=== PATIENT | male | born 1950 | race African-American/Black ===

== ENCOUNTER 2018-03-18 16:10 | Inpatient (IN) ==
[2018-03-18 16:51] LABS: Basophils % 0.3 % (0.0-0.8); Eosinophils % 0.2 % (0.00-10.9); Hematocrit 33.4 VOL% (42.0-52.0); Hemoglobin 11.3 GM/DL (14.0-18.0); Immature Granulocytes % 0.5 %; Immature Granulocytes Absolute 0.07 #; Lymphocytes # 0.7 10*3/uL (1.4-4.0); Lymphocytes % 4.7 % (21.2-54.2); Mean Corpuscular HGB Conc 33.8 GM/DL (32-36); Mean Corpuscular Hemoglobin 29 PG (27-34); Mean Corpuscular Volume 84.6 FL (87-102); Mean Platelet Volume 12.3 FL (9.6-12.0); Monocytes # 0.9 10*3/uL (0.11-0.8); Monocytes % 6.1 % (1.7-12.7); Neutrophils % 88.2 % (38.7-73.9); Platelet Count 220 T/CUMM (130-400); Red Blood Count 3.95 MC/CUMM (3.8-5.5); Red Cell Distribution Width 14.6 % (9.3-17.3); White Blood Count 14.7 T/CUMM (4-12)
[2018-03-18 17:00] LABS: Apearance,Urine CLEAR (Clear); Bilirubin,Urine Negative (Negative); Blood, Urine Negative (Negative); Glucose,Urine (UA) 50 mg/dL (Negative); Ketones,Urine Negative (Negative); Nitrite,Urine Negative (Negative); Protein,Urine Negative; Urine Color Yellow (Yellow); Urine Specific Gravity 1.009 (1.001-1.035); Urine Urobilinogen < 2.0 EU/DL (0.2-1.0)
[2018-03-18 17:12] LABS: Albumin 3.8 G/DL (3.4-5.0); Bilirubin,Total 0.4 MG/DL (0.2-1.0); Calcium 8.4 MG/DL (8.5-10.1); Lactic Acid 1.2 MMOL/L (0.4-2.0); Osmolality,Calculated 300.1 MOS/KG (273-304); Total Protein 7.5 G/DL (6.4-8.3)
[2018-03-18 17:20] LABS: Band Neutrophils 6 % (0-10); Lymphocytes 1 % (20-55); Segmented Neutrophils 88 % (50-85); Total Cells Counted 100
[2018-03-18 17:21] LABS: Anisocytosis 1+; Ovalocytes Few; Platelet Estimate Normal
[2018-03-18] MEDS ORDERED: SODIUM CHLORIDE 0.9% 1,000 ML IV STA (17:21)
[2018-03-18] MEDS ORDERED: DEXTROSE 50% 25 GM/50 ML VIAL IV PRN (19:22)
[2018-03-18] MEDS ORDERED: GLUCAGON 1 MG VIAL IM PRN (19:22)
[2018-03-18] MEDS ORDERED: ALBUTEROL 2.5 MG/3 ML NEB RESP TX PRN (19:24)
[2018-03-18] MEDS ORDERED: SODIUM CHLORIDE 0.9% 1,000 ML IV SCH (19:30)
[2018-03-18] MEDS ORDERED: LEVOFLOXACIN INJ 150 ML IV ONE (20:51)
[2018-03-18] MEDS ORDERED: INSULIN NPH/REGULAR 70/30 100 UNIT/ML SUBCUT SCH (21:00)
[2018-03-18] MEDS ORDERED: LEVOFLOXACIN INJ 750 MG in PREMIX 1 EACH IV SCH (22:00)
[2018-03-18] MEDS: INSULIN LISPRO 100 UNIT/ML SUBCUT SCH (22:42)
[2018-03-18] MEDS: hydrALAZINE 25 MG TABLET PO SCH (22:43)
[2018-03-18] MEDS: CARVEDILOL 25 MG TABLET PO SCH (22:43)
[2018-03-18] MEDS: PANTOPRAZOLE 40 MG TABLET PO SCH (22:43)
[2018-03-18] MEDS: ENOXAPARIN 30 MG/0.3 ML SYRINGE SUBCUT SCH (22:43)
[2018-03-18] MEDS: SODIUM CHLORIDE 0.45% 1,000 ML IV SCH (22:44)
[2018-03-19] MEDS: PIPERACILLIN/TAZOBACTAM 3,375 MG in SODIUM CHLORIDE 0.9% 100 ML IV SCH ×4 (00:20→23:40)
[2018-03-19] MEDS: ALBUTEROL 2.5 MG/3 ML NEB RESP TX SCH ×4 (00:27→19:10)
[2018-03-19 06:45] LABS: Basophils % 0.1 % (0.0-0.8); Eosinophils % 0.1 % (0.00-10.9); Hematocrit 31.3 VOL% (42.0-52.0); Hemoglobin 9.9 GM/DL (14.0-18.0); Immature Granulocytes % 0.5 %; Immature Granulocytes Absolute 0.07 #; Lymphocytes # 1.9 10*3/uL (1.4-4.0); Lymphocytes % 12.4 % (21.2-54.2); Mean Corpuscular HGB Conc 31.6 GM/DL (32-36); Mean Corpuscular Hemoglobin 28 PG (27-34); Mean Corpuscular Volume 88.4 FL (87-102); Mean Platelet Volume 12.9 FL (9.6-12.0); Monocytes # 1.4 10*3/uL (0.11-0.8); Neutrophils # 12.1 10*3/uL (1.4-7.4); Neutrophils % 77.9 % (38.7-73.9); Platelet Count 184 T/CUMM (130-400); Red Blood Count 3.54 MC/CUMM (3.8-5.5); Red Cell Distribution Width 14.8 % (9.3-17.3); White Blood Count 15.5 T/CUMM (4-12)
[2018-03-19 07:31] LABS: Calcium 7.8 MG/DL (8.5-10.1); Osmolality,Calculated 309.3 MOS/KG (273-304); Potassium 4.5 MMOL/L (3.5-5.1); Risk Ratio 2.42; Thyroid Stimulating Hormone 0.837 uIU/ml (0.358-3.74); Total Protein 6.6 G/DL (6.4-8.3); VLDL CHOLESTEROL 25.2 MG/DL
[2018-03-19] MEDS ORDERED: INSULIN NPH/REGULAR 70/30 100 UNIT/ML SUBCUT SCH ×2 (08:00→09:00)
[2018-03-19] MEDS ORDERED: FUROSEMIDE 40 MG TABLET PO SCH (08:00)
[2018-03-19] MEDS ORDERED: BUMETANIDE 1 MG TABLET PO SCH (09:00)
[2018-03-19] MEDS ORDERED: sitaGLIPtin 100 MG TABLET PO SCH (09:00)
[2018-03-19] MEDS: INSULIN LISPRO 100 UNIT/ML SUBCUT SCH ×4 (09:04→21:23)
[2018-03-19] MEDS: ATORVASTATIN 20 MG TABLET PO SCH (09:19)
[2018-03-19] MEDS: hydrALAZINE 25 MG TABLET PO SCH ×4 (09:19→21:23)
[2018-03-19] MEDS: CARVEDILOL 25 MG TABLET PO SCH ×2 (09:21→17:04)
[2018-03-19] MEDS: SPIRONOLACTONE 25 MG TABLET PO SCH (09:21)
[2018-03-19] MEDS: amLODIPine 10 MG TABLET PO SCH (09:21)
[2018-03-19] MEDS: ASPIRIN EC 81 MG TABLET PO SCH (09:22)
[2018-03-19] MEDS: EPLERENONE 50 MG TABLET PO SCH (09:22)
[2018-03-19] MEDS: CLOPIDOGREL 75 MG TABLET PO SCH (09:22)
[2018-03-19] MEDS: ENOXAPARIN 30 MG/0.3 ML SYRINGE SUBCUT SCH (21:23)
[2018-03-19] MEDS: PANTOPRAZOLE 40 MG TABLET PO SCH (21:23)
[2018-03-19] MEDS: SODIUM CHLORIDE 0.45% 1,000 ML IV SCH (21:25)
[2018-03-19] MEDS ORDERED: ALUMINUM/MAGNES/SIMETH MAX STR 30 ML UDCUP PO PRN (21:55)
[2018-03-20] MEDS: ALBUTEROL 2.5 MG/3 ML NEB RESP TX SCH ×4 (00:30→20:17)
[2018-03-20] MEDS: ONDANSETRON 4 MG/2 ML VIAL IV PRN (03:40)
[2018-03-20 07:06] LABS: Calcium 8.4 MG/DL (8.5-10.1); Osmolality,Calculated 301.8 MOS/KG (273-304)
[2018-03-20] MEDS: PIPERACILLIN/TAZOBACTAM 3,375 MG in SODIUM CHLORIDE 0.9% 100 ML IV SCH ×3 (08:07→23:56)
[2018-03-20] MEDS: SODIUM CHLORIDE 0.45% 1,000 ML IV SCH (08:07)
[2018-03-20] MEDS: CLOPIDOGREL 75 MG TABLET PO SCH (08:16)
[2018-03-20] MEDS: SPIRONOLACTONE 25 MG TABLET PO SCH (08:16)
[2018-03-20] MEDS: hydrALAZINE 25 MG TABLET PO SCH ×4 (08:16→21:10)
[2018-03-20] MEDS: amLODIPine 10 MG TABLET PO SCH (08:16)
[2018-03-20] MEDS: ASPIRIN EC 81 MG TABLET PO SCH (08:16)
[2018-03-20] MEDS: ATORVASTATIN 20 MG TABLET PO SCH (08:16)
[2018-03-20] MEDS: INSULIN LISPRO 100 UNIT/ML SUBCUT SCH ×4 (08:17→21:06)
[2018-03-20] MEDS: INSULIN NPH/REGULAR 70/30 100 UNIT/ML SUBCUT SCH ×2 (08:23→21:06)
[2018-03-20] MEDS: EPLERENONE 50 MG TABLET PO SCH (09:03)
[2018-03-20] MEDS: ACETAMINOPHEN 325 MG TABLET PO PRN (10:03)
[2018-03-20] MEDS: CARVEDILOL 25 MG TABLET PO SCH ×2 (10:03→16:28)
[2018-03-20] MEDS: VANCOMYCIN INJ 1,750 MG in SODIUM CHLORIDE 0.9% 500 ML IV SCH (13:41)
[2018-03-20] MEDS: ENOXAPARIN 30 MG/0.3 ML SYRINGE SUBCUT SCH (21:10)
[2018-03-20] MEDS: PANTOPRAZOLE 40 MG TABLET PO SCH (21:10)
[2018-03-20] MEDS: LEVOFLOXACIN INJ 500 MG in PREMIX 1 EACH IV SCH (22:30)
[2018-03-20] MEDS ORDERED: MAGNESIUM HYDROXIDE SUSP 30 ML UDCUP PO PRN (22:39)
[2018-03-21] MEDS: ALBUTEROL 2.5 MG/3 ML NEB RESP TX SCH ×4 (01:50→19:38)
[2018-03-21] MEDS ORDERED: FUROSEMIDE 100 MG/10 ML VIAL ONE (02:12)
[2018-03-21] MEDS ORDERED: NITROGLYCERIN DRIP 50 MG/250 ML BOTTLE IV ONE (02:20)
[2018-03-21] MEDS ORDERED: NITROGLYCERIN DRIP 50 MG/250 ML BOTTLE IV PRN (02:21)
[2018-03-21] MEDS ORDERED: MORPHINE 4 MG/1 ML VIAL IV ONE (02:23)
[2018-03-21] MEDS ORDERED: FUROSEMIDE 40 MG/4 ML VIAL IV ONE (02:30)
[2018-03-21] MEDS ORDERED: ETOMIDATE 20 MG/10 ML VIAL IV ONE (02:46)
[2018-03-21] MEDS ORDERED: VECURONIUM 10 MG VIAL IV ONE (02:46)
[2018-03-21 02:58] LABS: Calcium 8.5 MG/DL (8.5-10.1); Calcium 8.6 MG/DL (8.5-10.1); Osmolality,Calculated 304.4 MOS/KG (273-304); Potassium 4.4 MMOL/L (3.5-5.1)
[2018-03-21] MEDS ORDERED: FUROSEMIDE 20 MG/2 ML VIAL IV ONE (03:00)
[2018-03-21 03:03] LABS: Basophils % 0.1 % (0.0-0.8); Eosinophils # 0.1 10*3/uL (0.0-0.87); Eosinophils % 1.3 % (0.00-10.9); Hematocrit 34.8 VOL% (42.0-52.0); Hemoglobin 10.9 GM/DL (14.0-18.0); Immature Granulocytes % 0.4 %; Immature Granulocytes Absolute 0.04 #; Lymphocytes # 1.2 10*3/uL (1.4-4.0); Lymphocytes % 12.9 % (21.2-54.2); Mean Corpuscular HGB Conc 31.3 GM/DL (32-36); Mean Corpuscular Hemoglobin 28 PG (27-34); Mean Corpuscular Volume 88.5 FL (87-102); Mean Platelet Volume 12.9 FL (9.6-12.0); Monocytes # 0.9 10*3/uL (0.11-0.8); Neutrophils # 7.3 10*3/uL (1.4-7.4); Neutrophils % 76.3 % (38.7-73.9); Platelet Count 186 T/CUMM (130-400); Red Blood Count 3.93 MC/CUMM (3.8-5.5); Red Cell Distribution Width 14.7 % (9.3-17.3); White Blood Count 9.5 T/CUMM (4-12)
[2018-03-21 03:25] LABS: ABG Base Excess -1.9 MMOL/L (-2.5-2.5); ABG HCO3 22.3 MMOL/L (20-26); ABG Oxygen Saturation 66.4 % (95-100); ABG PCO2 37.9 MM HG (35-48); ABG PH 7.387 (7.35-7.45); ABG TCO2 20.8 MMOL/L (23-27)
[2018-03-21 03:29] LABS: ABG PO2 37.3 MM HG (80-95)
[2018-03-21 04:21] LABS: ABG Base Excess -2.3 MMOL/L (-2.5-2.5); ABG HCO3 21.9 MMOL/L (20-26); ABG Oxygen Saturation 87.3 % (95-100); ABG PCO2 35.2 MM HG (35-48); ABG PH 7.411 (7.35-7.45); ABG PO2 59.2 MM HG (80-95); ABG TCO2 22.9 MMOL/L (23-27); Pt O2 Delivery Device BIPAP
[2018-03-21] MEDS ORDERED: FUROSEMIDE 40 MG/4 ML VIAL IV SCH (08:00)
[2018-03-21] MEDS: FUROSEMIDE 40 MG/4 ML VIAL IV SCH ×2 (08:53→16:50)
[2018-03-21] MEDS: INSULIN LISPRO 100 UNIT/ML SUBCUT SCH ×4 (08:55→20:33)
[2018-03-21] MEDS: INSULIN NPH/REGULAR 70/30 100 UNIT/ML SUBCUT SCH ×2 (08:55→20:34)
[2018-03-21] MEDS: CLOPIDOGREL 75 MG TABLET PO SCH (08:57)
[2018-03-21] MEDS: ASPIRIN EC 81 MG TABLET PO SCH (08:57)
[2018-03-21] MEDS: SPIRONOLACTONE 25 MG TABLET PO SCH (08:57)
[2018-03-21] MEDS: amLODIPine 10 MG TABLET PO SCH (08:57)
[2018-03-21] MEDS: ATORVASTATIN 20 MG TABLET PO SCH (08:57)
[2018-03-21] MEDS: CARVEDILOL 25 MG TABLET PO SCH ×2 (08:57→16:50)
[2018-03-21] MEDS: hydrALAZINE 25 MG TABLET PO SCH ×4 (08:57→20:35)
[2018-03-21] MEDS: EPLERENONE 50 MG TABLET PO SCH (09:00)
[2018-03-21] MEDS: PIPERACILLIN/TAZOBACTAM 3,375 MG in SODIUM CHLORIDE 0.9% 100 ML IV SCH ×2 (09:00→16:50)
[2018-03-21] MEDS: ENOXAPARIN 30 MG/0.3 ML SYRINGE SUBCUT SCH (20:34)
[2018-03-21] MEDS: PANTOPRAZOLE 40 MG TABLET PO SCH (20:35)
[2018-03-21 22:26] LABS: ABG HCO3 26.6 MMOL/L (20-26); ABG Oxygen Saturation 73.5 % (95-100); ABG PCO2 38.3 MM HG (35-48); ABG PH 7.455 (7.35-7.45); ABG TCO2 24.4 MMOL/L (23-27)
[2018-03-21 22:28] LABS: ABG PO2 40.2 MM HG (80-95)
[2018-03-22] MEDS: PIPERACILLIN/TAZOBACTAM 3,375 MG in SODIUM CHLORIDE 0.9% 100 ML IV SCH ×3 (00:17→17:03)
[2018-03-22] MEDS: ALBUTEROL 2.5 MG/3 ML NEB RESP TX SCH ×4 (00:52→20:04)
[2018-03-22 03:10] LABS: ABG Base Excess 2.8 MMOL/L (-2.5-2.5); ABG HCO3 26.8 MMOL/L (20-26); ABG Oxygen Saturation 92.9 % (95-100); ABG PCO2 37.5 MM HG (35-48); ABG PH 7.458 (7.35-7.45); ABG PO2 64.4 MM HG (80-95); Pt O2 Delivery Device CPAP
[2018-03-22 04:47] LABS: Calcium 8.6 MG/DL (8.5-10.1); Potassium 3.6 MMOL/L (3.5-5.1)
[2018-03-22] MEDS: INSULIN LISPRO 100 UNIT/ML SUBCUT SCH ×4 (07:50→20:28)
[2018-03-22] MEDS ORDERED: FUROSEMIDE 100 MG/10 ML VIAL ONE (08:20)
[2018-03-22] MEDS: amLODIPine 10 MG TABLET PO SCH (08:25)
[2018-03-22] MEDS: CLOPIDOGREL 75 MG TABLET PO SCH (08:25)
[2018-03-22] MEDS: CARVEDILOL 25 MG TABLET PO SCH ×2 (08:26→17:02)
[2018-03-22] MEDS: INSULIN NPH/REGULAR 70/30 100 UNIT/ML SUBCUT SCH ×2 (08:26→20:28)
[2018-03-22] MEDS: SPIRONOLACTONE 25 MG TABLET PO SCH (08:26)
[2018-03-22] MEDS: hydrALAZINE 25 MG TABLET PO SCH ×4 (08:26→20:28)
[2018-03-22] MEDS: ASPIRIN EC 81 MG TABLET PO SCH (08:26)
[2018-03-22] MEDS: ATORVASTATIN 20 MG TABLET PO SCH (08:26)
[2018-03-22] MEDS: EPLERENONE 50 MG TABLET PO SCH (08:26)
[2018-03-22] MEDS: FUROSEMIDE 40 MG/4 ML VIAL IV SCH ×2 (08:26→17:03)
[2018-03-22] MEDS: VANCOMYCIN INJ 1,750 MG in SODIUM CHLORIDE 0.9% 500 ML IV SCH (12:34)
[2018-03-22] MEDS: ACETAMINOPHEN 325 MG TABLET PO PRN (12:55)
[2018-03-22] MEDS: LEVOFLOXACIN INJ 500 MG in PREMIX 1 EACH IV SCH (20:27)
[2018-03-22] MEDS: PANTOPRAZOLE 40 MG TABLET PO SCH (20:28)
[2018-03-22] MEDS: ENOXAPARIN 30 MG/0.3 ML SYRINGE SUBCUT SCH (20:28)
[2018-03-23] MEDS: ONDANSETRON 4 MG/2 ML VIAL IV PRN ×2 (00:02→20:44)
[2018-03-23] MEDS: ALBUTEROL 2.5 MG/3 ML NEB RESP TX SCH ×4 (00:44→19:31)
[2018-03-23] MEDS: PIPERACILLIN/TAZOBACTAM 3,375 MG in SODIUM CHLORIDE 0.9% 100 ML IV SCH ×3 (00:52→16:36)
[2018-03-23 05:17] LABS: Basophils % 0.2 % (0.0-0.8); Eosinophils % 0.3 % (0.00-10.9); Hematocrit 30.1 VOL% (42.0-52.0); Hemoglobin 9.8 GM/DL (14.0-18.0); Immature Granulocytes % 0.4 %; Immature Granulocytes Absolute 0.05 #; Lymphocytes # 1.3 10*3/uL (1.4-4.0); Lymphocytes % 10.6 % (21.2-54.2); Mean Corpuscular HGB Conc 32.6 GM/DL (32-36); Mean Corpuscular Hemoglobin 28 PG (27-34); Mean Corpuscular Volume 86.2 FL (87-102); Mean Platelet Volume 12.5 FL (9.6-12.0); Monocytes # 1.4 10*3/uL (0.11-0.8); Monocytes % 11.7 % (1.7-12.7); Neutrophils # 9.2 10*3/uL (1.4-7.4); Neutrophils % 76.8 % (38.7-73.9); Platelet Count 170 T/CUMM (130-400); Red Blood Count 3.49 MC/CUMM (3.8-5.5); Red Cell Distribution Width 14.5 % (9.3-17.3)
[2018-03-23 05:55] LABS: Calcium 8.7 MG/DL (8.5-10.1); Osmolality,Calculated 294.3 MOS/KG (273-304); Potassium 3.8 MMOL/L (3.5-5.1)
[2018-03-23] MEDS ORDERED: diphenhydrAMINE 2% CREAM 28 GM TUBE TOP PRN (09:30)
[2018-03-23] MEDS: INSULIN LISPRO 100 UNIT/ML SUBCUT SCH ×4 (09:46→20:42)
[2018-03-23] MEDS ORDERED: FUROSEMIDE 100 MG/10 ML VIAL ONE (09:51)
[2018-03-23] MEDS: ASPIRIN EC 81 MG TABLET PO SCH (10:02)
[2018-03-23] MEDS: amLODIPine 10 MG TABLET PO SCH (10:02)
[2018-03-23] MEDS: INSULIN NPH/REGULAR 70/30 100 UNIT/ML SUBCUT SCH ×2 (10:02→20:44)
[2018-03-23] MEDS: ATORVASTATIN 20 MG TABLET PO SCH (10:03)
[2018-03-23] MEDS: hydrALAZINE 25 MG TABLET PO SCH ×4 (10:03→20:44)
[2018-03-23] MEDS: SPIRONOLACTONE 25 MG TABLET PO SCH (10:03)
[2018-03-23] MEDS: CLOPIDOGREL 75 MG TABLET PO SCH (10:03)
[2018-03-23] MEDS: CARVEDILOL 25 MG TABLET PO SCH ×2 (10:03→16:28)
[2018-03-23] MEDS: FUROSEMIDE 40 MG/4 ML VIAL IV SCH ×2 (10:04→16:28)
[2018-03-23] MEDS: EPLERENONE 25 MG TABLET PO SCH (10:06)
[2018-03-23] MEDS ORDERED: ALBUTEROL 0.63 MG/3 ML NEB RESP TX PRN (14:15)
[2018-03-23] MEDS ORDERED: ALBUTEROL 2.5 MG/3 ML NEB RESP TX PRN (14:30)
[2018-03-23] MEDS: ENOXAPARIN 30 MG/0.3 ML SYRINGE SUBCUT SCH (20:43)
[2018-03-23] MEDS: PANTOPRAZOLE 40 MG TABLET PO SCH (20:44)
[2018-03-24] MEDS ORDERED: VANCOMYCIN INJ 1,750 MG in SODIUM CHLORIDE 0.9% 500 ML IV SCH
[2018-03-24] MEDS: ALBUTEROL 2.5 MG/3 ML NEB RESP TX SCH ×4 (00:06→19:33)
[2018-03-24] MEDS: PIPERACILLIN/TAZOBACTAM 3,375 MG in SODIUM CHLORIDE 0.9% 100 ML IV SCH ×3 (00:14→16:03)
[2018-03-24] MEDS: ONDANSETRON 4 MG/2 ML VIAL IV PRN ×2 (00:57→13:00)
[2018-03-24 05:55] LABS: Basophils % 0.3 % (0.0-0.8); Eosinophils # 0.1 10*3/uL (0.0-0.87); Eosinophils % 1.2 % (0.00-10.9); Hematocrit 29.9 VOL% (42.0-52.0); Hemoglobin 9.8 GM/DL (14.0-18.0); Immature Granulocytes % 0.4 %; Immature Granulocytes Absolute 0.05 #; Lymphocytes # 1.4 10*3/uL (1.4-4.0); Lymphocytes % 11.5 % (21.2-54.2); Mean Corpuscular HGB Conc 32.8 GM/DL (32-36); Mean Corpuscular Hemoglobin 28 PG (27-34); Mean Corpuscular Volume 85.2 FL (87-102); Mean Platelet Volume 12.4 FL (9.6-12.0); Monocytes # 1.4 10*3/uL (0.11-0.8); Monocytes % 12.3 % (1.7-12.7); Neutrophils # 8.7 10*3/uL (1.4-7.4); Neutrophils % 74.3 % (38.7-73.9); Platelet Count 182 T/CUMM (130-400); Red Blood Count 3.51 MC/CUMM (3.8-5.5); Red Cell Distribution Width 14.4 % (9.3-17.3); White Blood Count 11.7 T/CUMM (4-12)
[2018-03-24 06:02] LABS: Calcium 8.5 MG/DL (8.5-10.1); Potassium 3.6 MMOL/L (3.5-5.1)
[2018-03-24] MEDS: INSULIN NPH/REGULAR 70/30 100 UNIT/ML SUBCUT SCH ×2 (08:27→21:04)
[2018-03-24] MEDS: INSULIN LISPRO 100 UNIT/ML SUBCUT SCH ×4 (08:27→21:04)
[2018-03-24] MEDS: amLODIPine 10 MG TABLET PO SCH (08:30)
[2018-03-24] MEDS: EPLERENONE 25 MG TABLET PO SCH (08:30)
[2018-03-24] MEDS: ASPIRIN EC 81 MG TABLET PO SCH (08:30)
[2018-03-24] MEDS: hydrALAZINE 25 MG TABLET PO SCH ×4 (08:30→22:15)
[2018-03-24] MEDS: CLOPIDOGREL 75 MG TABLET PO SCH (08:30)
[2018-03-24] MEDS: SPIRONOLACTONE 25 MG TABLET PO SCH (08:30)
[2018-03-24] MEDS: CARVEDILOL 25 MG TABLET PO SCH ×2 (08:30→16:03)
[2018-03-24] MEDS: FUROSEMIDE 40 MG/4 ML VIAL IV SCH ×2 (08:31→16:03)
[2018-03-24] MEDS: ATORVASTATIN 20 MG TABLET PO SCH (08:31)
[2018-03-24] MEDS: CLINDAMYCIN INJ 600 MG in PREMIX 1 EACH IV SCH (17:46)
[2018-03-24] MEDS: ENOXAPARIN 30 MG/0.3 ML SYRINGE SUBCUT SCH (22:15)
[2018-03-24] MEDS: LACTOBACILLUS RHAMNOSUS GG CAPSULE PO SCH (22:15)
[2018-03-24] MEDS: PANTOPRAZOLE 40 MG TABLET PO SCH (22:15)
[2018-03-25] MEDS: ALBUTEROL 2.5 MG/3 ML NEB RESP TX SCH ×3 (00:25→13:55)
[2018-03-25] MEDS: CLINDAMYCIN INJ 600 MG in PREMIX 1 EACH IV SCH ×2 (04:18→11:25)
[2018-03-25 05:39] LABS: Basophils % 0.4 % (0.0-0.8); Eosinophils # 0.3 10*3/uL (0.0-0.87); Eosinophils % 2.2 % (0.00-10.9); Hematocrit 29.8 VOL% (42.0-52.0); Hemoglobin 9.9 GM/DL (14.0-18.0); Immature Granulocytes % 0.4 %; Immature Granulocytes Absolute 0.04 #; Lymphocytes # 1.4 10*3/uL (1.4-4.0); Lymphocytes % 12.5 % (21.2-54.2); Mean Corpuscular HGB Conc 33.2 GM/DL (32-36); Mean Corpuscular Hemoglobin 28 PG (27-34); Mean Corpuscular Volume 84.9 FL (87-102); Mean Platelet Volume 12.4 FL (9.6-12.0); Monocytes # 1.6 10*3/uL (0.11-0.8); Monocytes % 13.6 % (1.7-12.7); Neutrophils # 8.1 10*3/uL (1.4-7.4); Neutrophils % 70.9 % (38.7-73.9); Platelet Count 215 T/CUMM (130-400); Red Blood Count 3.51 MC/CUMM (3.8-5.5); Red Cell Distribution Width 14.3 % (9.3-17.3); White Blood Count 11.4 T/CUMM (4-12)
[2018-03-25 06:21] LABS: Calcium 8.4 MG/DL (8.5-10.1); Osmolality,Calculated 298.3 MOS/KG (273-304); Potassium 3.5 MMOL/L (3.5-5.1)
[2018-03-25] MEDS: SPIRONOLACTONE 25 MG TABLET PO SCH (09:44)
[2018-03-25] MEDS: ATORVASTATIN 20 MG TABLET PO SCH (09:44)
[2018-03-25] MEDS: amLODIPine 10 MG TABLET PO SCH (09:44)
[2018-03-25] MEDS: hydrALAZINE 25 MG TABLET PO SCH ×2 (09:44→12:29)
[2018-03-25] MEDS: EPLERENONE 25 MG TABLET PO SCH (09:44)
[2018-03-25] MEDS: CLOPIDOGREL 75 MG TABLET PO SCH (09:44)
[2018-03-25] MEDS: ASPIRIN EC 81 MG TABLET PO SCH (09:44)
[2018-03-25] MEDS: CARVEDILOL 25 MG TABLET PO SCH (09:44)
[2018-03-25] MEDS: INSULIN LISPRO 100 UNIT/ML SUBCUT SCH ×3 (09:45→16:30)
[2018-03-25] MEDS: FUROSEMIDE 40 MG/4 ML VIAL IV SCH (09:45)
[2018-03-25] MEDS: INSULIN NPH/REGULAR 70/30 100 UNIT/ML SUBCUT SCH (09:45)
[2018-03-25] MEDS: LACTOBACILLUS RHAMNOSUS GG CAPSULE PO SCH (09:45)
[2018-03-25 17:05] VITALS: BP 157/65
== END 2018-03-25 17:29 | disposition home or self-care (01) | DRG 922 ==
LOC: EDUNIT# → EDBD → N.ED 16:10 → N.EDINP 19:22 → SUATTDRO 19:22 → N.5E 20:52 → N.CC 03-21 02:35 → N.2E 03-23 15:54
PROVIDERS: ATTEND Internal Medicine